=== PATIENT | female | born 1960 | race Caucasian/White ===

== ENCOUNTER 2023-10-22 10:03 | Emergency (ER) | payer OTHER ==
[~2023-10-22] VITALS: Ht 160 cm; Wt 95.3 kg
[~2023-10-22 10:03] MED LIST: ONDANSETRON HCL8 MG PO; Z.0.DICYCLOMINE HCL2 PO; Z.0.LIPITOR10 MG PO; Z.0.LYRICA100 MG PO; Z.0.METOPROLOL SUCC2 PO
[2023-10-22] MEDS: ONDANSETRON HCL INJ 2MG/ML 2ML 2 MG/ML VIAL IV STA (11:01)
[2023-10-22] MEDS: SODIUM CHLORIDE 0.9% 1000ML 1,000 ML IV ONE (11:01)
[2023-10-22] MEDS: ALBUTEROL/IPRATROPIUM 3 ML NEB NEB ONE (11:02)
[2023-10-22 13:24] VITALS: PULSE 73; RESP 18; TEMP 97.6
[2023-10-22] MEDS ORDERED: CEPHALEXIN500 MG PO (13:50)
[2023-10-22] MEDS ORDERED: VENTOLIN HFA18 GM INH (13:51)
[2023-10-22 14:03] VITALS: BP 110/65; PULSE 78; RESP 18; TEMP 98.1; O2SAT 98
== END 2023-10-22 14:05 | disposition home or self-care (01) ==
LOC: FSED 10:10
DX: R05.9 Cough, unspecified (principal); J18.9 Pneumonia, unspecified organism; J44.1 Chronic obstructive pulmonary disease with (acute) exacerbation; N39.0 Urinary tract infection, site not specified
CPT/HCPCS: 71046; 71250; 93005; 99284; J0696; J2405; J7030